=== PATIENT | female | born 1980 | race Caucasian/White ===

== ENCOUNTER 2022-03-27 09:27 | Emergency (ER) | payer OTHER | END 2022-03-27 10:31 | disposition left against medical advice (07) | LOC: CSHERS 09:27 | DX: Z53.21 Procedure and treatment not carried out due to patient leaving prior to being seen by health care provider (principal) ==

== ENCOUNTER 2022-12-14 11:51 | Emergency (ER) | payer OTHER ==
[2022-12-14] MEDS ORDERED: Ketorolac Tromethamine 30 MG/ML VIAL ONE (15:12)
== END 2022-12-14 15:17 | disposition home or self-care (01) ==
LOC: CSHERS 11:51
DX: S90.32XA Contusion of left foot, initial encounter (principal); S93.402A Sprain of unspecified ligament of left ankle, initial encounter; X50.1XXA Overexertion from prolonged static or awkward postures, initial encounter
CPT/HCPCS: 96372; J1885

== ENCOUNTER 2023-09-26 14:08 | Outpatient (CLI) | payer MEDICAID | END 2023-09-26 14:09 | disposition home or self-care (01) | LOC: CSHMAMMO 14:08 | PROVIDERS: ATTEND Nurse Practitioner Women's Health | DX: Z12.31 Encounter for screening mammogram for malignant neoplasm of breast (principal) | CPT/HCPCS: 77067 ==

== ENCOUNTER 2025-03-12 22:40 | Emergency (ER) | payer SELFPAY ==
[2025-03-13] MEDS ORDERED: Erythromycin Base 0.5% Oint 1 GM TUBE ONE (02:40)
[2025-03-13] MEDS ORDERED: Tetracaine 0.5% PF 4 ML BOT ONE (03:31)
[2025-03-13] MEDS ORDERED: Fluorescein Opthalmic Strip ONE (03:39)
== END 2025-03-13 04:14 | disposition home or self-care (01) ==
LOC: CSHERS 22:40
DX: T15.12XA Foreign body in conjunctival sac, left eye, initial encounter (principal); W44.8XXA Other foreign body entering into or through a natural orifice, initial encounter
CPT/HCPCS: 65205; 99283

== ENCOUNTER 2025-05-01 08:54 | Emergency (ER) | payer SELFPAY | END 2025-05-01 09:56 | disposition home or self-care (01) | LOC: CSHERS 08:54 | DX: J00 Acute nasopharyngitis [common cold] (principal); J30.9 Allergic rhinitis, unspecified | CPT/HCPCS: 87428; 99283 ==